=== PATIENT | male | born 1970 | race Caucasian/White ===

== ENCOUNTER 2017-01-20 17:30 | Emergency (ER) | payer OTHER ==
--- NOTE | 2017-01-20 17:38 | PDOC ---
History of Present Illness - General History Source: Patient Exam Limitations: No Limitations - History of Present Illness Initial Comments: 01/20/17 18:16 The patient is a 47 year old male, with no significant past medical history, who presents to the emergency department with complaints of left achilles pain and states I think I tore my left achilles tendon. The patient reports that yesterday he was playing basketball, grabbed a rebound and then landed on his left ankle. He denies hearing a pop but states the area felt like he was kicked in the back of his left heel. He reports the pain is a 8/10 in severity and reports difficulty ambulating. The patient denies chest pain, shortness of breath, dizziness, lightheadedness, or head injury. He denies any other bodily pain or injury. Allergies: None Social history: Never smoked PCP: Dr. Phong Rooney <Jacque Joseph - Last Filed: 01/20/17 18:16> <Jodi Kruse - Last Filed: 01/21/17 21:33> - General Chief Complaint: Pain Stated Complaint: LEFT ACHILLES PAIN Time Seen by Provider: 01/20/17 17:38 Past History <Jacque Joseph - Last Filed: 01/20/17 18:16> <Jodi Kruse - Last Filed: 01/21/17 21:33> - Past Medical History Allergies/Adverse Reactions: Allergies Allergy/AdvReac Type Severity Reaction Status Date / Time No Known Allergies Allergy Verified 01/20/17 17:37 Home Medications: Ambulatory Orders Clonazepam [Klonopin -] 0.5 mg PO BID 01/20/17 Dextroamphetamine/Amphetamine [Adderall Xr 30 mg Capsule] 30 mg PO DAILY Gabapentin [Neurontin] 300 mg PO BID 01/20/17 Ibuprofen [Advil -] 800 mg PO ONCE 01/20/17 Tramadol HCl 1 tab PO Q6H PRN #12 tablet MDD 4 tabs 01/20/17 Review of Systems - Review of Systems Able to Perform ROS?: Yes Comments:: 01/20/17 18:17 GENERAL/CONSTITUTIONAL: No fever or chills. No weakness. HEAD, EYES, EARS, NOSE AND THROAT: No change in vision. No ear pain or discharge. No sore throat. CARDIOVASCULAR: No chest pain or shortness of breath. RESPIRATORY: No cough, wheezing, or hemoptysis. GASTROINTESTINAL: No nausea, vomiting, diarrhea or constipation. GENITOURINARY: No dysuria, frequency, or change in urination. MUSCULOSKELETAL: +Left achilles pain No neck or back pain. SKIN: No rash NEUROLOGIC: No headache, vertigo, loss of consciousness, or change in strength/ sensation. ENDOCRINE: No increased thirst. No abnormal weight change. HEMATOLOGIC/LYMPHATIC: No anemia, easy bleeding, or history of blood clots. ALLERGIC/IMMUNOLOGIC: No hives or skin allergy. <Jacque Joseph - Last Filed: 01/20/17 18:16> *Physical Exam - Vital Signs Last Vital Signs Temp Pulse Resp BP Pulse Ox 98.1 F 80 16 119/77 99 01/20/17 17:37 01/20/17 17:37 01/20/17 17:37 01/20/17 17:37 01/20/17 17:37 <Jacque Joseph - Last Filed: 01/20/17 18:16> - Physical Exam Comments: GENERAL: Awake, alert, and fully oriented, in no acute distress HEAD: No signs of trauma EXTREMITIES: L ankle with palpable defect in usual location of Achilles tendon. +Trejo test. Remainder of extremities with normal range of motion, no edema. No clubbing or cyanosis. No cords, erythema, or tenderness NEUROLOGICAL: Cranial nerves II through XII grossly intact. Normal speech. Motor and sensation intact. Antalgic gait. SKIN: Warm, Dry, normal turgor, no rashes or lesions noted. <Jodi Kruse - Last Filed: 01/21/17 21:33> Procedures - Splinting Splint Location: Left: Ankle Pre-Proc Neuro Vasc Exam: normal Hand-Made Type: orthoglass Splint Type: Yes: Short Leg Post-Proc Neuro Vasc Exam: normal [place] Bandage: yes, 3", 4" Complications: No Progress: Patient placed in short leg splint with slight extension of the ankle. F/u with ortho for Achilles tendon injury. Patient crutch trained in ED. <Jodi Kruse - Last Filed: 01/21/17 21:33> *DC/Admit/Observation/Transfer - Attestations Scribe Attestion: 01/20/17 18:17 Documentation prepared by ROHINI Wooten, acting as medical lab tech instructor for Jodi Kruse MD. <Jacque Joseph - Last Filed: 01/20/17 18:16> - Discharge Dispostion Admit: No <Jodi Kruse - Last Filed: 01/21/17 21:33> Diagnosis at time of Disposition: Achilles tendon rupture Qualifiers: Encounter type: initial encounter Laterality: left Qualified Code(s): S86.012A - Strain of left Achilles tendon, initial encounter - Discharge Dispostion Disposition: HOME Condition at time of disposition: Stable - Prescriptions Prescriptions: Tramadol HCl 1 tab PO Q6H PRN #12 tablet MDD 4 tabs PRN Reason: Severe Pain - Referrals Referrals: Clayton Hartman MD [Staff Physician] - - Patient Instructions Printed Discharge Instructions: DI for Achilles Tendon Rupture
[2017-01-20 17:48] VITALS: BP 119/77; PULSE 80; TEMP 98.1; BMI 27.4
== END 2017-01-20 18:45 | disposition home or self-care (01) ==
LOC: FER 17:30
PROC: 2W3TX1Z Immobilization of Left Foot using Splint (ICD-10-PCS; principal; 2017-01-20)
DX: S86.012A Strain of left Achilles tendon, initial encounter (principal); X58.XXXA Exposure to other specified factors, initial encounter; Y93.67 Activity, basketball; Y92.310 Basketball court as the place of occurrence of the external cause
CPT/HCPCS: 99283-25